=== PATIENT | male | born 1990 | race American Indian/Alaskan Native ===

== ENCOUNTER 2018-07-29 17:26 | Emergency (ER) | payer MEDICAID ==
[2018-07-29 17:44] VITALS: BMI 50.7
[2018-07-29 17:48] VITALS: RESP 18; TEMP 98.2
[2018-07-29 18:35] VITALS: BP 150/94; PULSE 72; O2SAT 99
[2018-07-29] MEDS ORDERED: Amoxicillin-Clav 875-125 mg Tab PO STA (18:42)
--- NOTE | 2018-07-29 18:48 | ED PDOC ---
Arrival/HPI - General Chief Complaint: ENT Problem Time Seen by Provider: 07/29/18 18:32 - History of Present Illness Narrative History of Present Illness (Text): 28 y/o male with PMH of HTN presents to the ED c/o sinus pressure, post nasal drip, and rhinorrhea x 1 week. States this feels like sinus infections that he has had in the past. Associated intermittent subjective fever. Has been taking sudafed and other decongestants for his symptoms with mild relief. Denies nausea, vomiting, abdominal pain, dizziness, vision changes, neck pain/stiffness, SOB, chest pain, back pain, urinary symptoms, numbness, weakness, paresthesias, or any other associated symptoms. Past Medical History - Infectious Disease Hx of Infectious Diseases: None - Cardiac Hx Hypertension: Yes - Endocrine/Metabolic Hx Diabetes Mellitus Type 2: (pre diabetic) - Psychiatric Hx Substance Use: No - Anesthesia Hx Anesthesia: No Family/Social History Smoking Status: Current Some Days Smoker Hx Alcohol Use: No Hx Substance Use: No Allergies/Home Meds Allergies/Adverse Reactions: Allergies No Known Allergies Allergy (Verified 07/29/18 17:43) Home Medications: Home Meds Medication Instructions Recorded Confirmed Lisinopril/Hydrochlorothiazide 1 tab PO DAILY 07/29/18 07/29/18 [Lisinopril-Hctz 20-25 mg Tab] metFORMIN [glucOPHAGE] 1 tab PO BID 07/29/18 07/29/18 Physical Exam Vital Signs Temp Pulse Resp BP Pulse Ox 07/29/18 18:35 72 18 150/94 H 99 07/29/18 17:48 176/104 H 07/29/18 17:47 98.2 F 89 18 174/116 H 97 Medical Decision Making ED Course and Treatment: 07/29/18 19:00 Pt with symptoms of sinusitis, similar to past episodes. Will treat with Augmentin and recommend PMD and ENT followup. Pt with HTN but is asymptomatic. No vision changes, dizziness, chest pain, SOB, back pain, abdominal pain, nausea, vomiting, numbness, weakness, paresthesias. Advised to discontinue decongestants with phenylepherine. Diagnostic testing results and plan of care discussed with patient. Strict instructions given regarding prescription use, importance of followup, and signs/symptoms to return to ER including dizziness, nausea, vomiting, severe he adache, or any other new/worsening symptoms. Pt verbalized understanding of discussion. Patient is A&Ox3, ambulating with steady gait, with vital signs stable for discharge. - Medication Orders Current Medication Orders: Amoxicillin/Clavulanate Potassium (Augmentin 875 Mg-125 Mg Tab) 1 tab PO STAT STA; Protocol Stop: 07/29/18 18:43 Disposition/Present on Arrival - Present on Arrival Any Indicators Present on Arrival: No History of DVT/PE: No History of Uncontrolled Diabetes: No Urinary Catheter: No History of Decub. Ulcer: No History Surgical Site Infection Following: None - Disposition Have Diagnosis and Disposition been Completed?: Yes Diagnosis: Sinusitis Disposition: HOME/ ROUTINE Disposition Time: 18:45 Patient Plan: Discharge Condition: GOOD Discharge Instructions (ExitCare): Sinusitis in Adults Additional Instructions: Augmentin every 12 hours for 7 days Flonase 2 sprays in each nostril daily Increase fluids Rest, no strenuous activity Followup with ENT within 2 days Followup with clinic within 2 days Return to ER with any new/worsening symptoms Prescriptions: Amoxicillin/Clavulanate [Augmentin 875 MG-125 MG] 1 tab PO Q12H #14 tab Fluticasone Nasal [Flonase] 1 spr NS DAILY #1 bottle Referrals: Francis Martins DO [Staff Provider] - Follow up with primary Monse Cornejo MD [Medical Doctor] - Follow up with primary [facility] [Outside] - Follow up with primary Forms: [email or web address] ([place]), WORK NOTE
== END 2018-07-29 19:02 | disposition home or self-care (01) ==
LOC: ED 17:26
DX: J32.9 Chronic sinusitis, unspecified (principal); I10 Essential (primary) hypertension; R73.03 Prediabetes